=== PATIENT | male | born 1985 | race Caucasian/White ===

== ENCOUNTER 2020-09-25 12:25 | Emergency (ER) | payer MEDICAID ==
[2020-09-25 13:04] VITALS: BP 128/77
--- NOTE | 2020-09-25 13:40 | XRAY Report ---
PROCEDURE: Finger(s) LT INDICATIONS: thumb vs drill TECHNIQUE: AP hand, 2 views of the left first finger(s) acquired. COMPARISON: None FINDINGS: Bones: No fractures or dislocations. No suspicious bony lesions. Soft tissues: No suspicious soft tissue calcifications. Small radiodense foreign bodies noted in the dorsal soft tissues of the thumb adjacent to the first DIP joint. IMPRESSION: No fracture. No osseous lesion. If there are persistent symptoms or continued clinical concern for pa thology, then repeat plain film radiographs (7-10 days) or advanced imaging (CT, MR, bone scan) shoul d be considered for further evaluation. Reviewed by: Paulette Fierro MD, PhD on 09/25/2020 1:39 PM PDT Approved by: Paulette Fierro MD, PhD on 09/25/2020 1:39 PM PDT Station ID: [id number]
--- NOTE | 2020-09-25 13:52 | ED Physician Documentation ---
PD HPI UPPER EXT INJURY - Stated complaint Stated Complaint: LT THUMB INJURY - Chief complaint Chief Complaint: Trauma Ext - History obtained from History obtained from: Patient - History of Present Illness Location: Left, Finger Type of injury: Laceration (from power drill while drilling sheet metal, that went into and out on dorsal soft tissue of IP joint. Able to flex and extend.) Timing - onset: Today Timing - details: Abrupt onset, Still present Worsened by: Palpating Associated symptoms: No: Weakness, Numbness Similar symptoms before: Has not had sx before Recently seen: Not recently seen Review of Systems Constitutional: denies: Fever, Chills Neurologic: denies: Focal weakness, Numbness PD PAST MEDICAL HISTORY - Past Medical History Past Medical History: Yes Psych: Anxiety - Past Surgical History Past Surgical History: No - Present Medications Home Medications: Ambulatory Orders Medication Instructions Recorded Confirmed OLANZapine [Zyprexa] 1 tab PO DAILY 09/25/20 09/25/20 Propranolol [Inderal] 10 mg PO BID 09/25/20 09/25/20 - Allergies Allergies/Adverse Reactions: Allergies Allergy/AdvReac Type Severity Reaction Status Date / Time No Known Drug Allergies Allergy Verified 09/25/20 13:04 - Social History Does the pt smoke?: No Smoking Status: Never smoker Does the pt drink ETOH?: Yes Does the pt have substance abuse?: No - Immunizations Immunizations are current?: No - POLST Patient has POLST: No PD ED PE NORMAL - Vitals Vital signs reviewed: Yes - General General: Alert and oriented X 3, No acute distress, Well developed/nourished - Derm Derm: Normal color, Warm and dry - Extremities Extremities: Other (dorsum left thumb with 2 lacs, horizontal of each other just distal to the IP joint. Small rounded lac 2-3 mm without FB nor bleeding. The other is 1 cm and V shaped to soft tissue. small metallic shard of FB seen just in ragged edge soft tissue that is trimmed off.) - Neuro Neuro: No motor deficit, No sensory deficit Results - Vitals Vitals: Oxygen O2 Source Room air Procedures - Laceration (location) left thumb Length in cm: 1.5 Wound type: Irregular Neurovascular status: Sensory intact, Motor intact, Vascular intact Tendon involvement: Tendon intact Anesthesia: Lidocaine 1% Wound preparation: Irrigated copiously NS, Wound explored, To the base, FB identified, FB removed (just under the skin in loose torn edges), debridement of wound edges (traumatic laceration/avulsion) Skin layer closure: Nylon, Interrupted, Size #-0 - enter number (4), Sutures - enter # (5) Other: Patient tolerated well, No complications, Neurovascular intact, Dressing applied PD MEDICAL DECISION MAKING - ED course Complexity details: considered differential, d/w patient Departure - Departure Disposition: 01 Home, Self Care Clinical Impression: Thumb laceration Qualifiers: Encounter type: initial encounter Damage to nail status: without damage Foreign body presence: with foreign body Laterality: left Qualified Code(s): S61.022A - Laceration with foreign body of left thumb without damage to nail, initial encounter Condition: Stable Record reviewed to determine appropriate education?: Yes Instructions: ED Laceration Hand Follow-Up: DAWNA TONEY III [Primary Care Provider] - Comments: It is okay to wash and shower. Clean off the wound twice a day with soap and wa ter, or peroxide and water. Apply some antibiotic ointment to it to keep it moist. Also to watch for signs of infection such as purulence, redness or increasing pain. Return to your primary care or the ER at the specified time for suture removal. Suture removal 10 to 14 days. Gentle range of motion and use of the thumb to allow some stretching of it as its healing without pulling on the stitches too much. Tylenol ibuprofen as needed for pains. Your x-ray had shown a small metallic foreign body just under the skin. I believe that came out with the tissue debridement. I do not see any residual foreign body after irrigating and cleansing it. Discharge Date/Time: 09/25/20 15:06
[2020-09-25] MEDS ORDERED: BACITRACIN ZINC OINT 1 PACKET TOP STA (14:25)
== END 2020-09-25 15:06 | disposition home or self-care (01) ==
LOC: ED 12:25
DX: S61.022A Laceration with foreign body of left thumb without damage to nail, initial encounter (principal); W29.8XXA Contact with other powered hand tools and household machinery, initial encounter; Y93.H3 Activity, building and construction; Y92.814 Boat as the place of occurrence of the external cause
CPT/HCPCS: 12001; 73140; 99282; 99283; A9270

== ENCOUNTER 2020-10-07 12:50 | Emergency (ER) | payer MEDICAID ==
[2020-10-07 13:06] VITALS: BP 135/71
--- NOTE | 2020-10-07 14:03 | ED Physician Documentation ---
PD HPI WOUND RECHECK - Stated complaint Stated Complaint: THUMB SUTURE REMOVAL - Chief complaint Chief Complaint: General - Histroy obtained from History obtained from: Patient - History of Present Illness Location: Left Hand (dorsum of thumb) Timing - onset: How many days ago (12) Associated symptoms: No: Fever, Redness, Swelling Recently seen: Emergency Dept (sutured wound of thumb 12 days ago. Healing and here for suture removal.) Review of Systems Neurologic: denies: Focal weakness, Numbness PD PAST MEDICAL HISTORY - Past Medical History Psych: Anxiety Musculoskeletal: None - Past Surgical History Past Surgical History: No - Present Medications Home Medications: Ambulatory Orders Medication Instructions Recorded Confirmed OLANZapine [Zyprexa] 1 tab PO DAILY 09/25/20 09/25/20 Propranolol [Inderal] 10 mg PO BID 09/25/20 09/25/20 - Allergies Allergies/Adverse Reactions: Allergies Allergy/AdvReac Type Severity Reaction Status Date / Time No Known Drug Allergies Allergy Verified 10/07/20 13:06 - Social History Does the pt smoke?: No Smoking Status: Never smoker Does the pt drink ETOH?: Yes Does the pt have substance abuse?: No - Immunizations Immunizations are current?: No - POLST Patient has POLST: No PD ED PE NORMAL - Vitals Vital signs reviewed: Yes - General General: Alert and oriented X 3, No acute distress, Well developed/nourished - Derm Derm: Normal color, Warm and dry - Extremities Extremities: Other (dosrum left thumb distal to IP joint with sutues in place. Wound is healing, with central area that is healing in (avulsion of skin did not allow full closure of the edges). No signs of infection. ) Results - Vitals Vitals: Vital Signs - 24 hr 10/07/20 13:05 Temperature 36.0 C L Heart Rate 73 Respiratory 16 Rate Blood Pressure 135/71 H O2 Saturation 98 Oxygen O2 Source Room air PD MEDICAL DECISION MAKING - ED course Complexity details: considered differential (sutures removed without problems by me. No drainage. No signs of infection. ), d/w patient Departure - Departure Disposition: 01 Home, Self Care Clinical Impression: Encounter for removal of sutures Condition: Stable Record reviewed to determine appropriate education?: Yes Comments: Appears as expected at this point. It will continue to heal in and cover the avulsed area over the next couple weeks still. Continue local treatment with cleaning and ointment. Recheck if signs of infection. Discharge Date/Time: 10/07/20 14:23
== END 2020-10-07 14:23 | disposition home or self-care (01) ==
LOC: ED 12:50
DX: S69.92XD Unspecified injury of left wrist, hand and finger(s), subsequent encounter (principal); X58.XXXD Exposure to other specified factors, subsequent encounter
CPT/HCPCS: 99281; 99282